=== PATIENT | female | born 1995 | race Caucasian/White ===

== ENCOUNTER 2024-02-28 09:57 | Outpatient (REF) | payer MEDICAID, SELFPAY ==
[2024-02-29 04:28] LABS: ~HepC Num1 0.09 S/CO (0.00-0.79); ~Hepatitis C Antibody Nonreactive (Nonreactive)
== END 2024-02-28 09:58 | disposition home or self-care (01) ==
LOC: HO.CHCLDS 09:57
PROVIDERS: Visit Provider Student in an Organized Health Care Education/Training Program
DX: Z00.00 Encounter for general adult medical examination without abnormal findings (principal)
CPT/HCPCS: 36415; 86803

== ENCOUNTER 2024-06-05 14:16 | Outpatient (REF) | payer MEDICAID, SELFPAY ==
[2024-06-05 14:44] LABS: Appearance Urine Turbid; Color Urine Yellow; Glucose Urine UA Negative (Negative); Leukocyte Esterase Urine Negative (Negative); Nitrite Urine Negative (Negative); Specific Gravity - Urine >= 1.030 (1.005-1.025); UMIC TRIGGER UACC YES; Urine Blood Small (1+) (Negative); Urine Ketones Negative (Negative); Urine Protein Trace mg/dL (Neg-Trace)
[2024-06-05 15:01] LABS: Bacteria Urine None Seen (None Seen); Hyaline Casts Urine 0-2 /LPF (0-2); RBC Urine 0-2 /HPF (0-2); WBC Urine 0-5 /HPF (0-5)
[2024-06-05 15:47] LABS: Bacterial Vaginosis PCR POSITIVE (Negative); Candida Group PCR NOT DETECTED (Not Detect); Candida glab krusei PCR NOT DETECTED (Not Detect); Trichomonas vaginalis PCR NOT DETECTED (Not Detect)
[2024-06-05 16:20] LABS: CT PCR NOT DETECTED (Not Detect.); NG PCR NOT DETECTED (Not Detect.)
== END 2024-06-05 14:17 | disposition home or self-care (01) ==
LOC: HO.HHCLNP 14:16
PROVIDERS: Visit Provider Internal Medicine
DX: N89.8 Other specified noninflammatory disorders of vagina (principal); R30.0 Dysuria
CPT/HCPCS: 0352U; 81001; 87086; 87491; 87591

== ENCOUNTER 2024-06-26 15:26 | Outpatient (REF) | payer MEDICAID, SELFPAY ==
[2024-06-27 10:47] LABS: Bacterial Vaginosis PCR POSITIVE (Negative); Candida Group PCR NOT DETECTED (Not Detect); Candida glab krusei PCR NOT DETECTED (Not Detect); Trichomonas vaginalis PCR NOT DETECTED (Not Detect)
== END 2024-06-26 15:27 | disposition home or self-care (01) ==
LOC: HO.CHCLNP 15:26
PROVIDERS: Visit Provider Family Medicine
DX: R10.2 Pelvic and perineal pain (principal); N76.0 Acute vaginitis; B96.89 Other specified bacterial agents as the cause of diseases classified elsewhere
CPT/HCPCS: 0352U; 87086; 87147

== ENCOUNTER 2024-11-05 10:36 | Outpatient (REF) | payer MEDICAID, SELFPAY ==
[2024-11-06 11:19] LABS: HPV 16,18/45 See PAP report
== END 2024-11-05 10:37 | disposition home or self-care (01) ==
LOC: HO.LNP 10:36
PROVIDERS: Visit Provider Family Medicine
DX: Z12.4 Encounter for screening for malignant neoplasm of cervix (principal); Z11.51 Encounter for screening for human papillomavirus (HPV)
CPT/HCPCS: 87626; 88175

== ENCOUNTER 2024-11-05 13:59 | Outpatient (REF) | payer MEDICAID, SELFPAY | END 2024-11-05 14:00 | disposition home or self-care (01) | LOC: HO.HHCLNP 13:59 | PROVIDERS: Visit Provider Family Medicine | DX: Z13.89 Encounter for screening for other disorder (principal) ==

== ENCOUNTER 2024-11-13 15:01 | Outpatient (REF) | payer MEDICAID, SELFPAY ==
[2024-11-13 16:26] LABS: MANUAL DIFF FLAG NO
[2024-11-13 16:33] LABS: Basophils Percent Auto 0.3 % (0-2); Eosinophils Percent Auto 0.3 % (0-4); Hematocrit 37.9 % (37.0-47.0); Hemoglobin 12.2 g/dl (12.0-16.0); Imm Gran Abs Auto 0.04 X10*3/uL (0.00-0.03); Imm Gran Pct Auto 0.3 % (0.0-0.4); Lymphocytes Absolute Auto 2.1 X10*3/uL (1.2-4.9); Lymphocytes Percent Auto 17.5 % (20-40); Mean Corpuscular HGB Conc 32.2 g/dl (31.0-35.0); Mean Corpuscular Hemoglobin 24.7 pg (27.0-33.0); Mean Corpuscular Volume 76.7 fL (80.0-98.0); Mean Platelet Volume 9.5 fL (9.4-12.3); Monocytes Absolute Auto 0.7 X10*3/uL (0.1-1.2); Monocytes Percent Auto 5.6 % (2-11); Neutrophils Absolute Auto 9.2 x10*3/uL (2.0-8.3); Platelet Count 392 X10*3/uL (160-400); Red Blood Count 4.94 X10*6/uL (4.20-5.50); Red Cell Distribution Width 15.6 % (11.0-16.0); White Blood Count 12.1 X10*3/uL (4.8-10.8)
[2024-11-13 16:55] LABS: Alanine Aminotransferase 12 U/L (0-31); Albumin Level 4.2 g/dL (3.5-5.0); Anion Gap 13 (12-20); Aspartate Amino Transferase 21 U/L (5-31); Bilirubin Total 0.2 mg/dL (0.0-1.0); Blood Urea Nitrogen 7 mg/dL (9-16); Calcium 9.1 mg/dL (8.4-10.2); Carbon Dioxide 22 mmol/L (22-29); Chloride 107 mmol/L (96-108); Estimated Glomerular Filt Rate > 60; Glucose Random 102 mg/dL (60-115); Potassium 4.5 mmol/L (3.3-5.1); Sodium 137 mmol/L (135-145)
[2024-11-13 17:01] LABS: Alkaline Phosphatase 109 U/L (39-117)
[2024-11-13 17:13] LABS: TSH reflex Free T4 0.93 uIU/mL (0.32-4.0)
--- OUTSIDE RECORDS SUMMARY | 2024-11-13 17:31 | XMS_ITS | Encounter Summary ---
Author Organization [facility] Address [address] [place] [address] 7[address] [place] [address] Care Team Providers Care Cold Molding Press Operator Name Role Phone Cleo Oliva MD Primary Care Provider [phone] Encounter Details Date Type Department Care Team (Latest Contact Info) Description 07/12/2019 Abstract [facility] CONVERSIONS Dental, Provider, DDS Social History Tobacco Use Types Packs/Day Years Used Date Smoking Tobacco: Never Assessed Comments Unknown Sex and Gender Information Value Date Recorded Sex Assigned at Female 08/22/2022 10:34 AM EDT Legal Sex Female 10:34 AM EDT Gender Identity Female 08/22/2022 10:34 AM EDT Sexual Orientation Straight 08/22/2022 10 :34 AM EDT documented as of this encounter Plan of Treatment Not on file documented as of this encounter Visit Diagnoses Not on filedocumented in this encounter Care Teams Cold Molding Press Operator Relationship Specialty Start Date End Date Cleo Oliva MD [address] [place] [phone] PCP - General Family Medicine 05/14/18 documented as of this encounter
--- OUTSIDE RECORDS SUMMARY | 2024-11-13 17:31 | XMS_ITS | Encounter Summary ---
Author Organization [employer] Address [address] [facility] 7t [place] [address] Care Team Providers Care Aircraft Maintenance Director Name Role Phone Cleo Oliva MD Primary Care Provider [phone] Encounter Details Date Type Department Care Team ([facility] st Contact Info) Description 09/01/2023 Orders Only [facility] MED & PEDS [address] [place], [place] [phone] Bobbi Queen MD [address] [place] [address] Other eczema (Primary Dx) Social History Tobacco Use Types Packs/Day Years Used Date Smoking Tobacco: Never Passive Smoke Exposure: Never Smokeless Tobacco: Never Alcohol Use Standard Drinks/Week Comments Never 0 (1 standard drink = 0.6 oz pur e alcohol) Depression Answer Date Recorded Patient Health Questionnaire-9 Score 14 08/23/2023 Patient Health Questionnaire-9 Score 14 08/23/2023 Last PHQ-9: Questionnaire Data Not on file 1 10/23/2022 Housing Stability Answer Date Recorded What is your housing situation today? I have eduar coe 08/07/[address] you li ve. Do you have problems with any of the following? None of the above 08/07/2023 Food Insecurity Answer Date Recorded Within the past 12 months, y ou worried that your food would run out before you got money to buy more: Never True 08/07/2023 Within the past 12 months,th e food you bought just didn't last and you didn't have enough money to get more: Never True Transportation Answer Date Recorded In the past 12 months, has l ack of transportation kept you from medical appts, meetings, work or from getting things needed for daily living? No 08/07/2023 Utilities Answer Date Recorded In the past 12 months, has t he electric, gas, oil or water company threatened to shut off services in your home? No 08/07/2023 Depression Answer Date Recorded Patient Health Questionnaire-2 Score 6 08/23/2023 Comments No Sex and Gender Information Value Date Recorded Sex Assigned at Female 08/22/2022 10:34 AM EDT Legal Sex Female 10:34 AM EDT Gender Identity Female 08/22/2022 10:34 AM EDT Sexual Orientation Straight 08/22/2022 10 :34 AM EDT documented as of this encounter Plan of Treatment Not on file documented as of this encounter Visit Diagnoses Diagnosis Other eczema- Primary documented in this encounter Additional Health Concerns Assessment Noted Time PHQ-9 Depression Total Score: 14 023 11:13 AM EDT documented as of this encounter Care Teams Aircraft Maintenance Director Relationship Specialty Start Date End Date Cleo Oliva MD [address] [place] [phone] PCP - General Family Medicine 05/14/18 documented as of this encounter
--- OUTSIDE RECORDS SUMMARY | 2024-11-13 17:31 | XMS_ITS | Clinical Summary ---
Author Organization [employer] Address [address] [facility] 7t [place] [address] Care Team Providers Care Cook 3 Pastry Name Role Phone Cleo Oliva MD Primary Care Provider [phone] Allergies No known active allergies Medications * This document contains information received from the source organization and may not represent a complete record from that organization. tacrolimus (Protopic) 0.1 % ointment Apply topically every 12 (twelve) hours. 60 g 3 3 Active omeprazole (PriLOSEC) [address] capsule TAKE 1 CAPSULE BY MOUTH TWICE A DAY 60 capsule 1 4 Active sertraline (Zoloft) 25 MG tablet Take 1 tablet (25 mg) by mouth Once per day. 30 tablet 11 4 06/19/20 25 Active betamethasone valerate (Valisone) 0.1 % creamIndication s:Exacerbation of eczema APPLY TOPICALLY IN THE MORNING AND AT BEDTIME IF NEEDED (DRYNESS) 45 g 2 4 Active mupirocin (Bactroban) 2 % ointmentIndicat ions:Rash Apply topically 3 times daily for 10 days. 22 g 5 11/15/19 25 Active triamcinolone (Kenalog) 0.5 % ointmentIndicat ions:Rash Apply topically 2 times daily. 90 g 5 Active medroxyPROGESTE Mitchel (Depo-Provera) 150 MG/ML injection Inject 1 mL (150 mg) into the muscle every 3 (three) months. 1 mL 3 4 11/05/19 25 Discontinu ed(Therapy completed) Hospital, Clinic, or Other Facility Administered Medication Ordered Dose Route Frequency Start Date End Date Status medroxyPROGESTERone (Depo-Provera) injection 150 mgIndications: control counseling 150 mg IM Every 3 months 06/26/2024 09/19/2025 Ac tive Active Problems Problem Noted Date Diagnosed Date Cervical cancer screening 11/05/2024 Assessment & Plan (11/05/2024 10:42 AM EST): 29 y.o. here for cervical cancer screening. Will continue monitoring following ASCCP guidelines. Anemia during 06/26/2024 Bacterial vaginosis 06/26/2024 Elevated glucose tolerance test 06/26/2024 GBS bacteriuria 06/26/2024 Not immune to rubella 06/26/2024 Pelvic pain 06/26/2024 Assessment & Plan (06/27/2024 9:55 AM EDT): Bimanual exam with left side tenderness, no cervical motion tenderness, nl cervix on visual inspection. No vaginal discharge observed on speculum examination. Will send pelvic US. Severe episode of recurrent major depressive disorder, without psychotic features 02/28/2024 Assessment & Plan (03/11/2024 10:38 AM EDT): During IBH Consult Mahnaz presenting with depressed mood, loss of interests/pleasure , changes in sleep difficulty falling asleep, change in appetite or weight reduce appetite, psychomotor retardation, trouble concentrating, thoughts of worthlessness or guilt, fatigue/loss of energy, inappropriate guilt , hopelessness, worthlessness , difficulty concentrating, short temper and memory loss; for a period of 24+ mo, for all symptoms in the context of , marriage, and relationship issues. Mahnaz's mom in 2021, since then patient has experienced severe depression. Complicated relationship with significant other exacerbates sxs. Mahnaz has a 7-months- old daughter, Cielo. Pt aware of coping mechanisms and would like to re-start psychotherapy to treat sxs. PLAN: (check all that apply) New/Additional Services needed Off-site services for Behavioral Health Integration Plan External OP therapy referral Patient Self Plan Patient to utilize skills provided in intervention , Patient to reach out to [facility] team as needed, Comply with medication , Patient to engage in OP therapy , and Patient to reach out to [facility] as needed. Eczema 08/23/2023 08/23/2023 Class 1 obesity 08/23/2023 08/23/2023 Resolved Problems Problem Noted Date Diagnosed Date Resolved Date Rh negative status during 08/23/202308/2308/23/2023 Dysuria 11/25/2022 02/28/2024 Assessment & Plan (12/27/2022 2:24 PM EST): Reports + hcg testing. Will send cephalexin and f/up with results. Encounters Date Type Department Care Team Description 11/13/2024 2:20 PM EST Office Visit [facility] [address] [place] [address] Dizziness (Primary Dx) 11/05/2024 10:00 AM EST Procedure Visit [facility] MED & PEDS [address] [place] [address] Morena Crystal MD Rash (Primary Dx); Cervical cancer screening 11/05/2024 Travel 10/09/2024 Telephone [facility] MED & PEDS [address] [place] [address] Cleo Oliva MD no show 10/03/2024 Orders Only [facility] MED & PEDS [address] [place] [address] Cleo Oliva MD 10/02/2024 Telephone [facility] MEDICINE [address] [place] [phone] Cleo Oliva MD Nurse Triage 10/02/2024 Refill [facility] MEDICINE [address] [place] [phone] Cleo Oliva MD Exacerbation of eczema 09/17/2024 11:00 AM EST Office Visit [facility] ADULT DENTAL [address] [place] [address] Prosper Queen Dental calculus (Primary Dx) 09/17/2024 Telephone [facility] MEDICINE [address] [place] [phone] Rosalba Taylor CNM No Show 09/17/2024 Telephone [facility] MED & PEDS [address] [place] [address] Cleo Oliva MD Nurse Triage from Last 3 Months Immunizations Name Administration Dates Next Due Influenza injectable quadrivalent preservative f ree 11/17/2022,07/29/2021 Influenza, IIV3, injectable 11/17/2022, Pfizer Covid-19 Vaccine 12+ 05/27/2021 Tdap 06/08/2023,07/29/2021 Social History Tobacco Use Types Packs/Day Years Used Date Smoking Tobacco: Never Passive Smoke Exposure: Never Smokeless Tobacco: Never Tobacco Cessation:Counseling Given: Not Answered Alcohol Use Standard Drinks/Week Comments Never 0 (1 standard drink = 0.6 oz pur e alcohol) Depression Answer Date Recorded Patient Health Questionnaire-9 Score 24 03/05/2024 Patient Health Questionnaire-9 Score 24 03/05/2024 Last PHQ-9: Questionnaire Data Not on file 0 03/05/2024 Housing Stability Answer Date Recorded What is your housing situation today? I have eduarsteve coe 08/07/[address] you [...] Date Recorded Patient Health Questionnaire-2 Score 6 03/05/2024 Comments No Sex and Gender Information Value Date Recorded Sex Assigned at Female 08/22/2022 10:34 AM EDT Legal Sex Female 10:34 AM EDT Gender Identity Female 08/22/2022 10:34 AM EDT Sexual Orientation Straight 08/22/2022 10 :34 AM EDT Last Filed Vital Signs Vital Sign Reading Time Taken Comments Blood Pressure 103/70 11/13/2024 1:44 PM EST Pulse 104 11/13/2024 1:44 PM EST Temperature 36.7 ??C (98 ??F) 11/13/2024 1:44 PM EST Respiratory Rate 20 11/05/2024 10:16 AM EST Oxygen Saturation 99% 11/13/2024 1:44 PM EST Inhaled Oxygen Concentration - - Weight 67.8 kg (149 lb 6.4 oz) 11/05/2024 10:16 AM EST Height 149.9 cm (4' 11 ) 11/05/2024 10:16 AM EST Body Mass Index 30.18 11/05/2024 10:16 AM EST Plan of Treatment Health Maintenance Due Date Last Done Comments HIV Screening 1994 Lipid Panel 1994 Alcohol/Substance Use Screening 2006 Hepatitis B Vaccines (1 of 3 - 19+ 3-dose series) 2013 COVID-19 Vaccine (2 - season) 2024 05/27/2021 Influenza Vaccine (#1) 2024 , 11/17/2022, 07/29/2021, Additional history exists Depression Monitoring (PHQ-9) 09/05/2024 03/05/2024, 03/05/2024 Dental Oral Exam 09/16/2024 03/15/2024 SDOH Screening 02/27/2025 02/28/2024 Depression Screening 03/05/2025 03/05/2024, 03/05/20 Dental Prophylaxis 03/18/2025 09/17/2024, 0 03/15/2024, 12/16/2022 Dental X-Ray: Bitewings 09/18/2025 09/17/2024, 03/15 Family Planning (PISQ) 11/05/2025 11/05/2024 Tobacco Screening 11/05/2025 11/05/2024 Dental X-Ray: Full Mouth 03/16/2027 03/15/2024 Cervical Cancer Screening 01/11/2028 HPV/Cotest 01/11/2028 01/10/2023, 07/29/2021 Pap Smear 01/11/2028 01/10/2023, 07/29/2021 DTaP/Tdap/Td Vaccines (3 - Td or Tdap) 06/08/2033 06/08/2023, 07/29/2021 Zoster Vaccines (1 of 2) 2044 RSV Patients and Patients Aged 60 years or older (1 - 1-dose 75+ series) 2069 Hepatitis C Screening Completed 02/28/2024 HIB Vaccines Aged Out No longer eligi ble based on patient's age to complete this topic HPV Vaccines Aged Out No longer eligi ble based on patient's age to complete this topic Hepatitis A Vaccines Aged Out No long er eligible based on patient's age to complete this topic IPV Vaccines Aged Out No longer eligi ble based on patient's age to complete this topic Meningococcal Vaccine Aged Out No wiley kristin eligible based on patient's age to complete this topic Pneumococcal Vaccine: Pediatrics (0 to 5 Years) and At-Risk Patients (6 to 64 Years) Aged Out No longer eligible based on patient's age to complete this topic RSV under 20 months Aged Out No longe r eligible based on patient's age to complete this topic Rotavirus Vaccines Aged Out No longer eligible based on patient's age to complete this topic Procedures Procedure Name Priority Date/Time Associated Diagnosis Comments CBC WITH AUTO DIFFERENTIAL Routine 11/13/2024 3:03 PM EST Dizziness COMPREHENSIVE METABOLIC PANEL Routine 11/13/2024 3:03 PM EST Dizziness TSH W/REFLEX TO FT4 Routine 11/13/2024 3 :03 PM EST Dizziness INTRAORAL - PERIAPICAL FIRST RADIOGRAPHIC IMAGE Routine 09/17/2024 11:00 AM EST ADJUNCTIVE GENERAL SERVICES - PROFESSIONAL VISITS - CASE PRESENTATION, SUBSEQUENT TO DETAILED AND EXTENSIVE TREATMENT PLANNING Routine 09/17/2024 11:00 AM EST BITEWING - SINGLE RADIOGRAPHIC IMAGE Routine 09/17/2024 11:00 AM EST ORAL HYGIENE INSTRUCTIONS Routine 09/17/2024 11:00 AM EST PROPHYLAXIS - ADULT Routine 09/17/2024 1 1:00 AM EST DIAGNOSTIC - DIAGNOSTIC IMAGING - INTRAORAL - COMPREHENSIVE SERIES OF RADIOGRAPHIC IMAGES Routine 03/15/2024 9:00 AM EDT PERIODIC ORAL EVALUATION - ESTABLISHED PATIENT Routine 03/15/2024 9:00 AM EDT HEPATITIS C AB W/REFL TO HCV RNA, QN, PCR Routine 02/28/2024 10:02 AM EDT PE (physical exam), annual HM PAP/HPV Routine 01/10/2023 from Last 3 Months or Most Recently Relevant to Health Maintenance Results * TSH W/Reflex to FT4 (11/13/2024 3:03 PM EST) TSH reflex Free T4 0.93 0.32 - 4.0 uIU/mL [facility] Blood Venous blood specimen / Unknown 11/13/2024 3:03 PM EST 11/13/2024 4:23 PM EST us Hansa Van MD LAB BLOOD ORDERABLES Final Re sult [facility] [address] [place] [address] [phone] * (ABNORMAL) CBC auto differential (11/13/2024 3:03 PM EST) White Blood Count 12.1(H) 4.8 - 10.8 X10*3/uL [facility] Red Blood Count 4.94 4.20 - 5.50 X10*6/uL [facility] Hemoglobin 12.2 12.0 - 16.0 g/dl [facility] Hematocrit 37.9 37.0 - 47.0 % [facility] Mean Corpuscular Volume 76.7(L) 80.0 - 98.0 fL [facility] Mean Corpuscular Hemoglobin 24.7(L) 27.0 - 33.0 pg [facility] Mean Corpuscular HGB Conc 32.2 31.0 - 35.0 g/dl [facility] Red Cell Distribution Width 15.6 11.0 - 16.0 % [facility] Platelet Count 392 160 - 400 X10*3/uL [facility] Mean Platelet Volume 9.5 9.4 - 12.3 fL [facility] Neutrophils Percent Auto 76.0(H) 45 - 73 % [facility] Imm Gran Pct Auto 0.3 0.0 - 0.4 % [facility] Lymphocytes Percent Auto 17.5(L) 20 - 40 % [facility] Monocytes Percent Auto 5.6 2 - 11 % [facility] Eosinophils Percent Auto 0.3 0 - 4 % [facility] Basophils Percent Auto 0.3 0 - 2 % [facility] NRBC Pct Auto 0.0 0.0 - 0.2 /100WBC [facility] Neutrophils Absolute Auto 9.2(H) 2.0 - 8.3 x10*3/uL [facility] Imm Gran Abs Auto 0.04(H) 0.00 - 0.03 X10*3/uL [facility] Lymphocytes Absolute Auto 2.1 1.2 - 4.9 X10*3/uL [facility] Monocytes Absolute Auto 0.7 0.1 - 1.2 X10*3/uL [facility] Eosinophils Absolute Auto 0.0 0.0 - 0.4 X10*3/uL [facility] Basophils Absolute Auto 0.0 0.0 - 0.2 X10*3/uL [facility] NRBC Abs Auto 0.000 0.0 - 0.012 X10*3/uL [facility] Blood Venous blood specimen / Unknown 11/13/2024 3:03 PM EST 11/13/2024 4:23 PM EST us Hansa Van MD LAB BLOOD ORDERABLES Final Re sult [facility] [address] [place] [phone] * (ABNORMAL) Comprehensive Metabolic Panel (11/13/2024 3:03 PM EST) Sodium 137 135 - 145 mmol/L [facility] Potassium 4.5 3.3 - 5.1 mmol/L [facility] Chloride 107 96 - 108 mmol/L [facility] Carbon Dioxide 22 22 - 29 mmol/L [facility] Anion Gap 13 12 - 20 [facility] Urea Nitrogen (BUN) 7(L) 9 - 16 mg/dL [facility] Creatinine, Serum 0.78 0.5 - 1.4 mg/dL [facility] Estimated Glomerular Filt Rate >60 [facility] Comment:Chronic Kidney Disea se: Estimated GFR < 60 mL/min/[id number] Kidney Disease: Estimated GFR < 15 mL/min/1.73m2 Glucose 102 60 - 115 mg/dL [facility] Calcium 9.1 8.4 - 10.2 mg/dL [facility] Bilirubin, Total 0.2 0.0 - 1.0 mg/dL [facility] Aspartate Amino Transferase 21 5 - 31 U/L [facility] Alanine Aminotransferase 12 0 - 31 U/L [facility] Total Protein 8.0 6.5 - 8.0 g/dL [facility] Albumin Level 4.2 3.5 - 5.0 g/dL [facility] Alkaline Phosphatase 109 39 - 117 U/L [facility] Blood Venous blood specimen / Unknown 11/13/2024 3:03 PM EST 11/13/2024 4:23 PM EST us Hansa Van MD LAB BLOOD ORDERABLES Final Re sult [facility] [address] [place] [address] [phone] * Hepatitis C Antibody with Reflex to HCV, RNA, Quantitative, Real-Time PCR (02/28/2024 10:02 AM EDT) Hepatitis C Antibody Nonreactive Nonreactive [facility] Comment:Antibodies to HCV no t detected; does not exclude early acuteHCV infection. Blood Venous blood specimen / Unknown 02/28/2024 10:02 AM EDT 02/28/2024 2:17 PM EDT Cleo Oliva MD LAB BLOOD ORDERABLES Final Resul t [facility] [address] [place] [address] [phone] * Hm Pap Smear (01/10/2023) Pap Negative for intraephithelial lesion or malignancy Negative for intraephithelial lesion or malignancy, Other HPV Undetected Undetected, Indeterminate, Quantitative, Not Detected us Historical Provider HEALTH MAINTENANCE Final Result from Last 3 Months or Most Recently Relevant to Health Maintenance Insurance [address] [place] [address] [employer] [facility] [employer]ICA[employer] STAND ADULT Care Teams Cook 3 Pastry Relationship Specialty Start Date End Date Cleo Oliva MD [address] [place] [phone] PCP - General Family Medicine 05/14/18
--- OUTSIDE RECORDS SUMMARY | 2024-11-13 17:31 | XMS_ITS | Encounter Summary ---
Author Organization [employer] Address [address] [facility] 7t [place] [address] Care Team Providers Care Power Generating Plant Operator Name Role Phone Cleo Oliva MD Primary Care Provider [phone] Encounter Details Date Type Department Care Team (Late st Contact Info) Description 11/13/2024 2:20 PM EST Office Visit [facility] [address] [place] [address] Dizziness (Primary Dx) Social History Tobacco Use Types [...] AM EDT documented as of this encounter Last Filed Vital Signs Vital Sign Reading Time Taken Comments Blood Pressure 103/70 11/13/2024 1:44 PM EST Pulse 104 11/13/2024 1:44 PM EST Temperature 36.7 ??C (98 ??F) 11/13/2024 1:44 PM EST Respiratory Rate - - Oxygen Saturation 99% 11/13/2024 1:44 PM EST Inhaled Oxygen Concentration - - Weight - - Height - - Body Mass Index - - documented in this encounter Plan of Treatment Not on file documented as of this encounter Procedures Procedure Name Priority Date/Time Associated Diagnosis Comments TSH W/REFLEX TO FT4 Routine 11/13/2024 3 :03 PM EST Dizziness CBC WITH AUTO DIFFERENTIAL Routine 11/13/2024 3:03 PM EST Dizziness COMPREHENSIVE METABOLIC PANEL Routine 11/13/2024 3:03 PM EST Dizziness documented in this encounter Results * (ABNORMAL) CBC auto differential (11/13/2024 3:03 PM EST) White Blood Count 12.1(H) 4.8 - 10.8 X10*3/uL [facility] Red Blood Count 4.94 4.20 - 5.50 X10*6/uL [facility] Hemoglobin 12.2 12.0 - 16.0 g/dl [facility] Hematocrit 37.9 37.0 - 47.0 % [facility] Mean Corpuscular Volume 76.7(L) 80.0 - 98.0 fL [facility] Mean Corpuscular Hemoglobin 24.7(L) 27.0 - 33.0 pg [facility] Mean Corpuscular HGB Conc 32.2 31.0 - 35.0 g/dl [facility] Red Cell Distribution Width 15.6 11.0 - 16.0 % [facility] Platelet Count 392 160 - 400 X10*3/uL [facility] Mean Platelet Volume 9.5 9.4 - 12.3 fL [facility] Neutrophils Percent Auto 76.0(H) 45 - 73 % [facility] Imm Gran Pct Auto 0.3 0.0 - 0.4 % [facility] Lymphocytes Percent Auto 17.5(L) 20 - 40 % [facility] Monocytes Percent Auto 5.6 2 - 11 % [facility] Eosinophils Percent Auto 0.3 0 - 4 % [facility] Basophils Percent Auto 0.3 0 - 2 % [facility] NRBC Pct Auto 0.0 0.0 - 0.2 /100WBC [facility] Neutrophils Absolute Auto 9.2(H) 2.0 - 8.3 x10*3/uL [facility] Imm Gran Abs Auto 0.04(H) 0.00 - 0.03 X10*3/uL [facility] Lymphocytes Absolute Auto 2.1 1.2 - 4.9 X10*3/uL [facility] Monocytes Absolute Auto 0.7 0.1 - 1.2 X10*3/uL [facility] Eosinophils Absolute Auto 0.0 0.0 - 0.4 X10*3/uL [facility] Basophils Absolute Auto 0.0 0.0 - 0.2 X10*3/uL [facility] NRBC Abs Auto 0.000 0.0 - 0.012 X10*3/uL [facility] Blood Venous blood specimen / Unknown 11/13/2024 3:03 PM EST 11/13/2024 4:23 PM EST us Hansa Van MD LAB BLOOD ORDERABLES Final Re sult [facility] [address] [place] [phone] * (ABNORMAL) Comprehensive Metabolic Panel (11/13/2024 3:03 PM EST) Sodium 137 135 - 145 mmol/L [facility] Potassium 4.5 3.3 - 5.1 mmol/L [facility] Chloride 107 96 - 108 mmol/L [facility] Carbon Dioxide 22 22 - 29 mmol/L [facility] Anion Gap 13 12 - 20 [facility] Urea Nitrogen (BUN) 7(L) 9 - 16 mg/dL [facility] Creatinine, Serum 0.78 0.5 - 1.4 mg/dL [facility] Estimated Glomerular Filt Rate >60 [facility] Comment:Chronic Kidney Disea se: Estimated GFR < 60 mL/min/[id number] Kidney Disease: Estimated GFR < 15 mL/min/1.73m2 Glucose 102 60 - 115 mg/dL [facility] Calcium 9.1 8.4 - 10.2 mg/dL [facility] Bilirubin, Total 0.2 0.0 - 1.0 mg/dL [facility] Aspartate Amino Transferase 21 5 - 31 U/L [facility] Alanine Aminotransferase 12 0 - 31 U/L [facility] Total Protein 8.0 6.5 - 8.0 g/dL [facility] Albumin Level 4.2 3.5 - 5.0 g/dL [facility] Alkaline Phosphatase 109 39 - 117 U/L [facility] Blood Venous blood specimen / Unknown 11/13/2024 3:03 PM EST 11/13/2024 4:23 PM EST us Hansa Van MD LAB BLOOD ORDERABLES Final Re sult [facility] [address] [place] [phone] [phone] * TSH W/Reflex to FT4 (11/13/2024 3:03 PM EST) TSH reflex Free T4 0.93 0.32 - 4.0 uIU/mL [facility] Blood Venous blood specimen / Unknown 11/13/2024 3:03 PM EST 11/13/2024 4:23 PM EST us Hansa Van MD LAB BLOOD ORDERABLES Final Re sult [facility] [address] [place] [address] [phone] documented in this encounter Visit Diagnoses Diagnosis Dizziness- Primary Dizziness and giddiness documented in this encounter Additional Health Concerns Assessment Noted Time PHQ-9 Depression Total Score: 24 024 9:30 AM EDT documented as of this encounter Care Teams Power Generating Plant Operator Relationship Specialty Start Date End Date Cleo Oliva MD [address] [place] [phone] PCP - General Family Medicine 05/14/18 documented as of this encounter
--- OUTSIDE RECORDS SUMMARY | 2024-11-13 17:31 | XMS_ITS | Clinical Summary ---
Author Organization [facility] it Address [address] [place] [address] Care Team Providers Care Clay Processing Labourer Name Role Phone Unavailable Primary Care Provider Unavailabl e Social History Tobacco Use Types Packs/Day Years Used Date Smoking Tobacco: Never Assessed Sex and Gender Information Value Date Recorded Sex Assigned at Not on file Gender Identity Not on file Sexual Orientation Not on file Plan of Treatment Health Maintenance Due Date Last Done Comments DTaP,Tdap,and Td Vaccines (1 - Tdap) 2013 Hepatitis B Vaccines (1 of 3 - 19+ 3-dose series) 2013 Cervical Cancer Screening: P ap Smear 2015 Depression Screening 11/16/2023 HIV Screening 11/16/2023 Hepatitis C Screening 11/16/2023 Social Influencers of Health Screening 11/16/2023 COVID-19 Vaccine ( - 2023-2 5 season) 2024 Influenza Vaccine (#1) 2024 HIB Vaccines Aged Out No longer eligi [...] on patient's age to complete this topic MMR Vaccines Aged Out No longer eligi ble based on patient's age to complete this topic Meningococcal ACWY Vaccine Aged Out N o longer eligible based on patient's age to complete this topic Pneumococcal Vaccine: Pediat rics (0 to 5 Years) and At-Risk Patients (6 to 64 Years) Aged Out No longer eligible b ased on patient's age to complete this topic RSV Immunization Patients Un otoniel 20 months Aged Out No longer eligible b ased on patient's age to complete this topic Varicella Vaccines Aged Out No longer eligible based on patient's age to complete this topic
--- OUTSIDE RECORDS SUMMARY | 2024-11-13 17:31 | XMS_ITS | Encounter Summary ---
Author Organization [facility] Address [address] [place] [address] [address] [place] [address] Care Team Providers Care Inserter Name Role Phone Cleo Oliva MD Primary Care Provider Reason for Visit * Reason Onset Date Comments Pa form 11/01/2022 Encounter Details Date Type Department Care Team ([facility] st Contact Info) Description 11/01/2022 Telephone [facility] MED & PEDS [address] [place], [place] [id number] Cleo Oliva MD [address] [place] [address] Pa form Social History Tobacco Use Types Packs/Day Years Used Date Smoking Tobacco: Never Assessed Comments Unknown Sex and Gender Information Value Date Recorded Sex Assigned at Female 08/22/2022 10:34 AM EDT Legal Sex Female 10:34 AM EDT Gender Identity Female 08/22/2022 10:34 AM EDT Sexual Orientation Straight 08/22/2022 10 :34 AM EDT COVID-19 Exposure Response Date Recorded In the last 10 days, have yo u been in contact with someone who was confirmed or suspected to have Coronavirus/COVID-19? No / Unsure 11/01/2022 2:42 PM EST documented as of this encounter Miscellaneous Notes * Telephone Encounter - Claudia Curiel LPN - 11/17/2022 9:44 AM EST Pt has been informed of update below regarding paying out of pocket pt stated will pay for medication at the pharmacy . * Telephone Encounter - Claudia Curiel LPN - 11/16/2022 12:24 PM EST Please read message below and advise * Telephone Encounter - Claudia Curiel LPN - 11/10/2022 9:16 AM EST Please read message below and advise regarding PA if agreed please provide DX * Telephone Encounter - Albertina Romero - 11/01/2022 11:09 AM EST TC from pt stated need a Pa form for medication Hydrocortisone kelsie 0.2% oint to be approved. PCP DR. Oliva documented in this encounter Plan of Treatment Not on file documented as of this encounter Visit Diagnoses Not on filedocumented in this encounter Care Teams Inserter Relationship Specialty Start Date End Date Cleo Oliva MD [address] [place] [id number] PCP - General Family Medicine 05/14/18 documented as of this encounter
--- OUTSIDE RECORDS SUMMARY | 2024-11-13 17:31 | XMS_ITS | Encounter Summary ---
Author Organization [employer] Address [address] [facility] [address]t [place] [address] Care Team Providers Care Nurse Practitioner Home Assessments Name Role Phone Cleo Oliva MD Primary Care Provider [phone] Encounter Details Date Type Department Care Team (Latest Contact Info) Description 11/05/2024 Travel Social History Tobacco Use Types Packs/Day Years [...] Diagnoses Not on filedocumented in this encounter Additional Health Concerns Assessment Noted Time PHQ-9 Depression Total Score: 24 024 9:30 AM EDT documented as of this encounter Care Teams Nurse Practitioner Home Assessments Relationship Specialty Start Date End Date Cleo Oliva MD [address] [place] [address] PCP - General Family Medicine 05/14/18 documented as of this encounter
--- OUTSIDE RECORDS SUMMARY | 2024-11-13 17:31 | XMS_ITS | Encounter Summary ---
Author Organization [employer] Address [address] [facility] [address] [place] [address] Care Team Providers Care Assembly Line Leader Name Role Phone Cleo Oliva MD Primary Care Provider [phone] Reason for Visit * Reason Onset Date Comments Med Refill 09/19/2023 Encounter Details Date Type Department Care Team ([facility] st Contact Info) Description 09/19/2023 Telephone [facility] MEDICINE [address] [place] [address] Cleo Oliva MD [address] [place] [address] Med Refill Social History Tobacco Use Types Packs/Day Years [...] AM EDT documented as of this encounter Miscellaneous Notes * Telephone Encounter - Ela Marquez - 09/19/2023 11:52 AM EST Tc from pt requesting med refill on; betamethasone valerate (Valisone) 0.1 % cream documented in this encounter Plan of Treatment Not on file documented as of this encounter Visit Diagnoses Not on filedocumented in this encounter Additional Health Concerns Assessment Noted Time PHQ-9 Depression Total Score: 14 023 11:13 AM EDT documented as of this encounter Care Teams Assembly Line Leader Relationship Specialty Start Date End Date Cleo Oliva MD [address] [place] [id number] PCP - General Family Medicine 05/14/18 documented as of this encounter
--- OUTSIDE RECORDS SUMMARY | 2024-11-13 17:31 | XMS_ITS | Encounter Summary ---
Author Organization [employer] Address [address] [place] [address] 7t [place] [address] Care Team Providers Care Magnetometer Operator Name Role Phone Cleo Oliva MD Primary Care Provider [phone] Reason for Visit * Reason Comments Well Woman Visit Encounter Details Date Type Department Care Team (Latest Contact Info) Description 11/05/2024 10:00 AM EST Procedure Visit [facility] CH[facility] MED & PEDS [address] [place], [place] [phone] Morena Crystal MD [address] [place] [address] Rash (Primary Dx); Cervical cancer screening Social History Tobacco Use Types Packs/Day Years [...] Sign Reading Time Taken Comments Blood Pressure 114/64 11/05/2024 10:16 AM EST Pulse 78 11/05/2024 10:16 AM EST Temperature 36.2 ??C (97.2 ??F) 11/05/2024 10:[address] Respiratory Rate 20 11/05/2024 10:16 AM EST Oxygen Saturation 98% 11/05/2024 10:16 AM EST Inhaled Oxygen Concentration - - Weight 67.8 kg (149 lb 6.4 oz) 11/05/2024 10:16 AM EST Height 149.9 cm (4' 11 ) 11/05/2024 10:16 AM EST Body Mass Index 30.18 11/05/2024 10:16 AM EST documented in this encounter Progress Notes * Morena Crystal MD - 11/05/2024 10:00 AM EST Subjective Patient ID: Mahnaz Guillen is a 29 y.o. female who presents for Well Woman Visit. 29 y.o. female here for annual well woman preventive exam. LMP: estimated 09/2024, unsure of date, regular menses, moderate bleeding. Sexual activity: Social History Substance and Sexual Activity Sexual activity: Defer intention: unknown BC method: none, recently stopped Depo shot Smoking hx: Tobacco Use: Low Risk (09/17/2024) Tobacco Smoking Tobacco Use: Never Smokeless Tobacco Use: Never Passive Exposure: Never Alcohol use hx: Social History Substance and Sexual Activity Alcohol use: Never OBHx: Pt states she has a red bump on her breast. Last pap: 2021, no Hx of abnormal pap Age of first menses: 11 Age of first : 27 Age of first : 28 G-1; T-1; P-0; A-0; L-1 IPV: Denies IPV Reviewed family hx No family history on file. Health Maintenance: No results found for: HMPAP , HMMAMMO , HMCOLON Review of Systems Constitutional: Negative for appetite change, fatigue and fever. HENT: Negative for congestion, postnasal drip and rhinorrhea. Eyes: Negative for discharge and redness. Respiratory: Negative for apnea, cough, chest tightness and shortness of breath. Cardiovascular: Negative for chest pain. Gastrointestinal: Negative for abdominal pain. Endocrine: Negative for polyphagia. Genitourinary: Negative for difficulty urinating, dysuria and urgency. Musculoskeletal: Negative for arthralgias. Skin: Positive for rash (breast). Neurological: Negative for dizziness, light-headedness, numbness and headaches. Hematological: Negative for adenopathy. Does not bruise/bleed easily. Objective Visit Vitals BP 114/64 (BP Location: Right arm, Patient Position: Sitting, BP Cuff Size: Large adult) Pulse 78 Temp 97.2 ??F (36.2 ??C) (Oral) Resp 20 Ht 4' 11 (1.499 m) Wt 149 lb 6.4 oz (67.8 kg) LMP (LMP Unknown) SpO2 98% BMI 30.18 kg/m?? OB Status Having periods Smoking Status Never BSA 1.68 m?? Physical Exam Exam conducted with a paint formulator present. Constitutional: General: She is not in acute distress. Appearance: She is not ill-appearing. HENT: Head: Normocephalic and atraumatic. Nose: No congestion. Pulmonary: Effort: Pulmonary effort is normal. No respiratory distress. Breath sounds: Normal breath sounds. Chest: Breasts: Right: Skin change (Visible Folliculitis) present. No mass or nipple discharge. Left: No mass or nipple discharge. Genitourinary: General: Normal vulva. Vagina: Normal. Cervix: Normal. Uterus: Normal. Adnexa: Right adnexa normal and left adnexa normal. Musculoskeletal: Cervical back: Normal range of motion. Neurological: General: No focal deficit present. Mental Status: She is alert. Psychiatric: Mood and Affect: Mood normal. Assessment/Plan Problem List Items Addressed This Visit Other Cervical cancer screening 29 y.o. here for cervical cancer screening. Will continue monitoring following ASCCP guidelines. Relevant Orders Pap Smear HPV High Risk with Reflex to Subtypes Other Visit Diagnoses Rash - Primary Prescribing Kenalog and Bactroban. Advised to use benzoyl peroxide wash as well. Relevant Medications mupirocin (Bactroban) 2 % ointment triamcinolone (Kenalog) 0.5 % ointment Scribe Attestation: By signing my name below, Kim Ledesma, [email or web address] that this documentation has been prepared under the direction of Morena Crystal MD. documented in this encounter Miscellaneous Notes * Assessment & Plan Note - Kim Ledesma - 11/05/2024 10:42 AM ESTAssociated Problem(s): Cervical cancer screening 29 y.o. here for cervical cancer screening. Will continue monitoring following ASCCP guidelines. documented in this encounter Plan of Treatment Scheduled Orders Name Type Priority Associated Diagnoses Orde r Schedule Pap Smear Pathology and Cytology Routine Cervical cancer screening Ordered: 11/05/2024 HPV High Risk with Reflex to Subtypes Lab Routine Cervical cancer screening Ordered: 11/05/2024 documented as of this encounter Visit Diagnoses Diagnosis Rash- Primary Rash and other nonspecific skin eruption Cervical cancer screening Screening for malignant neoplasm of the cervix documented in this encounter Additional Health Concerns Assessment Noted Time PHQ-9 Depression Total Score: 24 024 9:30 AM EDT documented as of this encounter Care Teams Magnetometer Operator Relationship Specialty Start Date End Date Cleo Oliva MD [address] [place] [id number] PCP - General Family Medicine 05/14/18 documented as of this encounter
--- OUTSIDE RECORDS SUMMARY | 2024-11-13 17:31 | XMS_ITS | Encounter Summary ---
Author Organization [facility] Address [address] [place] [address] [address] [place] [address] Care Team Providers Care Rig Builder Helper Name Role Phone Cleo Oliva MD Primary Care Provider [phone] Reason for Visit * Reason Onset Date Comments Referral 10/10/2022 Encounter Details Date Type Department Care Team ([facility] st Contact Info) Description 10/10/2022 Telephone [facility] MEDICINE [address] [place] [address] Cleo Oliva MD [address] [place] [address] Referral Social History Tobacco Use Types Packs/Day Years Used Date Smoking Tobacco: Never Assessed Comments Unknown Sex and Gender Information Value Date Recorded Sex Assigned at Female 08/22/2022 10:34 AM EDT Legal Sex Female 10:34 AM EDT Gender Identity Female 08/22/2022 10:34 AM EDT Sexual Orientation Straight 08/22/2022 10 :34 AM EDT documented as of this encounter Miscellaneous Notes * Telephone Encounter - Gomez Peña - 10/10/2022 1:53 PM EST Tc from pt requesting a new referral due to being send to the same place and would like to see a different critical care clinical nurse specialist Please contact pt at [phone] speaks tuvaluan documented in this encounter Plan of Treatment Not on file documented as of this encounter Visit Diagnoses Not on filedocumented in this encounter Care Teams Rig Builder Helper Relationship Specialty Start Date End Date Cleo Oliva MD [address] [place] [id number] PCP - General Family Medicine 05/14/18 documented as of this encounter
== END 2024-11-13 15:02 | disposition home or self-care (01) ==
LOC: HO.HHCL 15:01
PROVIDERS: Visit Provider Internal Medicine
DX: R42 Dizziness and giddiness (principal)
CPT/HCPCS: 36415; 80053; 84443; 85025